=== PATIENT | male | born 1945 | race African-American/Black ===

== ENCOUNTER → 2017-05-05 | Outpatient (CLI) | payer MEDICARE, OTHER ==
[~2017-05-05] MED LIST: AMLO5TAB2 PO; COLE3.754 PO; FINA5TAB4 PO; HYDR25TA6 PO; LOSA25TA5 PO; METF500T4 PO; OMEG1CAP2 PO; vitamin d PO
== END | disposition home or self-care (01) ==
LOC: CFH 14:19
PROVIDERS: ATTEND Nurse Practitioner Family
DX: S93.409A Sprain of unspecified ligament of unspecified ankle, initial encounter (principal); W18.30XA Fall on same level, unspecified, initial encounter; Y93.9 Activity, unspecified; Y92.89 Other specified places as the place of occurrence of the external cause; Y99.8 Other external cause status

== ENCOUNTER → 2017-09-10 | Outpatient (CLI) | payer MEDICARE, OTHER ==
[~2017-09-10] MED LIST changes: +COLE3.753 PO; -COLE3.754 PO
== END | disposition home or self-care (01) ==
LOC: CFH 10:03
PROVIDERS: ATTEND Urology
DX: N20.0 Calculus of kidney (principal); K57.30 Diverticulosis of large intestine without perforation or abscess without bleeding; K42.9 Umbilical hernia without obstruction or gangrene; K43.9 Ventral hernia without obstruction or gangrene; K76.0 Fatty (change of) liver, not elsewhere classified; E66.9 Obesity, unspecified; B37.49 Other urogenital candidiasis; I10 Essential (primary) hypertension; E29.1 Testicular hypofunction
CPT/HCPCS: 74176

== ENCOUNTER 2017-10-06 07:07 | Day surgery (SDC) | payer MEDICARE, OTHER ==
[2017-09-29 12:07] VITALS: BP 138/91
[~2017-10-06] VITALS: Ht 182.9 cm; Wt 111.0 kg
[2017-10-06] MEDS ORDERED: LACTATED RINGERS 1,000 ML IV SCH (07:46)
[2017-10-06] MEDS ORDERED: LIDOCAINE 1%, 2ML ONE (07:48)
[2017-10-06] MEDS ORDERED: LIDOCAINE 1%, 2ML SQ PRN (08:00)
[2017-10-06] MEDS ORDERED: PROPOFOL 10 MG/ML, 20ML ONE ×4 (09:32→09:55)
[2017-10-06] MEDS ORDERED: FENTANYL PF 100 MCG/2ML ONE (09:34)
[2017-10-06] MEDS ORDERED: SUCCINYLCHOLINE 20 MG/ML, 10ML ONE (09:55)
[2017-10-06] MEDS ORDERED: ROCURONIUM 10 MG/ML ONE (09:55)
[2017-10-06] MEDS ORDERED: MIDAZOLAM 1 MG/ML, 2ML ONE (09:55)
[2017-10-06] MEDS ORDERED: CEFAZOLIN 1,000 MG ONE ×2 (10:23)
[2017-10-06] MEDS ORDERED: DEXAMETHASONE 4 MG/ML, 1ML ONE (10:24)
[2017-10-06] MEDS ORDERED: ONDANSETRON 2MG/ML, 2ML ONE (10:24)
[2017-10-06] MEDS ORDERED: FENTANYL PF 100 MCG/2ML IV PRN (10:30)
[2017-10-06] MEDS ORDERED: hydrALAzine 20 MG/ML, 1ML IV PRN (10:30)
[2017-10-06] MEDS ORDERED: ACETAMINOPHEN 325 MG TABLET PO PRN (10:30)
[2017-10-06] MEDS ORDERED: OXYcodone 5 MG/5 ML ORAL.SOL UDC PO PRN (10:30)
[2017-10-06] MEDS ORDERED: HYDROmorphone 1 MG/ML, 1ML IV PRN (10:30)
[2017-10-06] MEDS ORDERED: HYDROcodone/APAP 7.5-325MG/15ML UDC PO PRN (10:30)
[2017-10-06] MEDS ORDERED: ONDANSETRON 2MG/ML, 2ML IVPush PRN (10:30)
[2017-10-06] MEDS ORDERED: LABETALOL 5MG/ML, 20ML IV PRN (10:30)
[2017-10-06] MEDS ORDERED: MEPERIDINE/PF 25MG/0.5ML IVPush PRN (10:30)
[2017-10-06] MEDS ORDERED: KETOROLAC 30 MG/1 ML IV PRN (10:30)
[2017-10-06] MEDS ORDERED: PROMETHAZINE 25 MG/ML, 1ML IV PRN (10:30)
[2017-10-06] MEDS ORDERED: ALBUTEROL SULFATE 2.5 MG/3 ML NPPB PRN (10:30)
[2017-10-06] MEDS ORDERED: METOPROLOL 1 MG/ML, 5ML IV PRN (10:30)
[2017-10-06] MEDS ORDERED: METOCLOPRAMIDE 5 MG/ML, 2ML IV PRN (10:30)
[2017-10-06] MEDS ORDERED: EPHEDRINE 50 MG/ML, 1ML IVPush PRN (10:30)
[2017-10-06] MEDS ORDERED: GLYCOPYRROLATE 0.2MG/1ML, 5ML ONE (11:15)
[2017-10-06] MEDS ORDERED: NEOSTIGMINE 1 MG/ML, 10ML ONE (11:15)
[2017-10-06] MEDS ORDERED: ACETAMINOPHEN 650 MG/20.3 ML UDC ONE (11:36)
[2017-10-06] MEDS ORDERED: OXYcodone 5 MG/5 ML ORAL.SOL UDC ONE (11:36)
== END 2017-10-06 14:00 ==
LOC: OUT 07:07
PROVIDERS: ATTEND Urology
DX: N20.0 Calculus of kidney (principal); E78.5 Hyperlipidemia, unspecified; I10 Essential (primary) hypertension; E11.9 Type 2 diabetes mellitus without complications; N40.0 Benign prostatic hyperplasia without lower urinary tract symptoms; E66.9 Obesity, unspecified; Z68.33 Body mass index [BMI] 33.0-33.9, adult
CPT/HCPCS: 50590; 82962; C1769; J0330; J0690; J1100; J2250; J2405; J2704; J2710; J3010; J3490; J7120

== ENCOUNTER → 2017-12-14 | Outpatient (CLI) | payer MEDICARE, OTHER | END | disposition home or self-care (01) | LOC: CFH 12:49 | PROVIDERS: ATTEND Nurse Practitioner Family | DX: R05 Cough (principal) | CPT/HCPCS: 71046 ==

== ENCOUNTER → 2018-06-16 | Outpatient (CLI) | payer MEDICARE, OTHER ==
[~2018-06-16] MED LIST changes: -METF500T4 PO; +METF500T5 PO
== END | disposition home or self-care (01) ==
LOC: CFH 08:21
PROVIDERS: ATTEND Urology
DX: N20.0 Calculus of kidney (principal)
CPT/HCPCS: 74018

== ENCOUNTER → 2019-03-28 | Outpatient (CLI) | payer MEDICARE, OTHER ==
[~2019-03-28] MED LIST changes: +AMLO-150 PO; -AMLO5TAB2 PO; +LOSA25TA25 PO; -LOSA25TA5 PO; +METF500T17 PO; -METF500T5 PO
== END | disposition home or self-care (01) ==
LOC: CFH 10:28
PROVIDERS: ATTEND Nurse Practitioner Family
DX: R10.9 Unspecified abdominal pain (principal)
CPT/HCPCS: 74018

== ENCOUNTER 2019-08-04 12:59 | Outpatient (CLI) | payer MEDICARE, OTHER | END 2019-08-04 23:59 | disposition home or self-care (01) | LOC: CFH 12:59 | PROVIDERS: ATTEND Nurse Practitioner Family | DX: N20.0 Calculus of kidney (principal); M47.816 Spondylosis without myelopathy or radiculopathy, lumbar region; E11.9 Type 2 diabetes mellitus without complications | CPT/HCPCS: 74018 ==

== ENCOUNTER → 2019-10-02 | Outpatient (CLI) | payer MEDICARE, OTHER | END | disposition home or self-care (01) | LOC: CFH 10:45 | PROVIDERS: ATTEND Orthopaedic Surgery | DX: M47.897 Other spondylosis, lumbosacral region (principal); G89.29 Other chronic pain; E11.9 Type 2 diabetes mellitus without complications; Z82.49 Family history of ischemic heart disease and other diseases of the circulatory system; Z83.3 Family history of diabetes mellitus; Z81.8 Family history of other mental and behavioral disorders | CPT/HCPCS: 72110 ==